=== PATIENT | female | born 1970 | race Two or more races ===

== ENCOUNTER 2024-01-17 18:41 | Emergency (ER) | payer OTHER ==
[~2024-01-17] VITALS: Ht 167.6 cm; Wt 82.1 kg
[2024-01-17 19:39] LABS: Basophils # (auto) 0.1 10 ^3/uL (0-0.2); Basophils % (auto) 0.9 % (0.0-2.0); Eosinophils # (auto) 0.4 10 ^3/uL (0-0.8); Eosinophils % (auto) 5.1 % (0.0-7.0); Hematocrit 42.7 % (36.0-46.0); Hemoglobin 13.9 g/dL (12.2-16.2); Lymphocytes # (auto) 3.2 10 ^3/uL (0.4-5.4); Mean Corpuscular Hemoglobin 32.9 pg (28.0-32.0); Mean Corpuscular Hgb Conc. 32.6 g/dL (32.0-36.0); Mean Corpuscular Volume 100.9 fL (80.0-100.0); Monocytes # (auto) 0.4 10 ^3/uL (0-1.3); Monocytes % (auto) 4.4 % (0.0-12.0); Neutrophils # (auto) 4.3 10 ^3/uL (1.6-8.6); Neutrophils % (auto) 51.6 % (37.0-80.0); Nucleated Red Blood Cells % 0.1 %; Platelet Count (auto) 197 10^3/uL (140-450); Red Blood Cells 4.23 10^6/uL (4.0-5.20); Red Cell Distribution Width 13.4 % (11.8-14.3); White Blood Cell 8.3 10^3/uL (4.4-10.8)
[2024-01-17 19:49] LABS: Chloride 108 mmol/L (98-107); Potassium 3.8 mmol/L (3.5-5.1); Sodium 142 mmol/L (136-145)
[2024-01-17 19:50] LABS: Anion Gap 10 (5-15); Calcium 10.3 mg/dL (8.7-10.4); Carbon Dioxide 24 mmol/L (20-31)
[2024-01-17 19:55] LABS: BUN/Creatinine Ratio 12.1 (10.0-20.0); Blood Urea Nitrogen 12 mg/dL (9-23); Glucose 103 mg/dL (74-106)
[2024-01-17] MEDS ORDERED: [UNRECOGNIZED DRUG - CODE] PO (20:37)
[2024-01-17 21:21] VITALS: BP 116/83; TEMP 98.3
[2024-01-17 21:22] VITALS: PULSE 71; RESP 16; O2SAT 97
== END 2024-01-17 21:27 | disposition home or self-care (01) ==
LOC: ER 18:41
DX: K59.00 Constipation, unspecified (principal); Q43.3 Congenital malformations of intestinal fixation; Z79.899 Other long term (current) drug therapy
CPT/HCPCS: 36415; 74176; 80048; 85025; 93005

== ENCOUNTER 2024-10-21 18:51 | Emergency (ER) | payer OTHER ==
[~2024-10-21] VITALS: Ht 167.6 cm; Wt 84.1 kg
[~2024-10-21 18:51] MED LIST: [UNRECOGNIZED DRUG - CODE] PO
[2024-10-21] MEDS: ALBUTEROL SULF 2.5 MG/0.5ML(0.5%) NEB SOLN NEB ONE (19:30)
[2024-10-21] MEDS: IPRATROPIUM BROM 0.5 MG/2.5ML INH SOL NEB ONE (19:30)
--- NOTE | 2024-10-21 20:09 | DVH ---
Exam: CT CT AB PEL WO CON-NO ORAL OR IV History: Diffuse abdominal pain Comparison Study: CT CT AB PEL WO CON-NO ORAL OR IV on DOS: 01/17/24 TECHNIQUE: Multidetector CT of the abdomen and pelvis was performed from lung bases to pubic symphysi s. Imaging was performed without IV contrast. Axial, coronal, and sagittal multiplanar reformats were obtained from the axial data set by the technologist. RADIATION DOSE: CTDI vol 8.6 mGy. DLP 496.2 mGy.cm Findings: Limited evaluation of the solid organs in the absence of IV contrast. Liver: Unremarkable. Spleen: Small splenule. Pancreas: Unremarkable. Gallbladder: Not well visualized and possibly surgically absent. Adrenals: Unremarkable Kidneys: Unremarkable. Pelvic Viscera: Unremarkable. Vasculature: Unremarkable. Retroperitoneum: Unremarkable. Bowel: No bowel obstruction. The appendix is normal. Musculoskeletal: Unremarkable. Soft tissues: Unremarkable Lungs: Minimal basilar atelectasis. Impression: 1. No acute abdominopelvic abnormality identified.
[2024-10-21 20:14] LABS: Hematocrit 37.4 % (36.0-46.0); Hemoglobin 12.3 g/dL (12.2-16.2); Mean Corpuscular Hemoglobin 30.2 pg (28.0-32.0); Mean Corpuscular Volume 91.9 fL (80.0-100.0); Nucleated Red Blood Cells % 0.1 %
[2024-10-21 20:22] LABS: Anion Gap 9 (5-15); Carbon Dioxide 23 mmol/L (20-31); Potassium 3.6 mmol/L (3.5-5.1); Sodium 141 mmol/L (136-145)
[2024-10-21 20:23] LABS: Calcium 9.3 mg/dL (8.7-10.4)
[2024-10-21 20:28] LABS: BUN/Creatinine Ratio 13.0 (10.0-20.0); Blood Urea Nitrogen 13 mg/dL (9-23); Chloride 109 mmol/L (98-107); Glucose 110 mg/dL (74-106)
[2024-10-21 20:43] LABS: Lipase 67 U/L (12-53)
[2024-10-21] MEDS ORDERED: DICY10CA PO (21:55)
[2024-10-21] MEDS ORDERED: ZOFR4T PO (21:55)
--- NOTE | 2024-10-21 21:55 | ED.PDOC ---
GI ASSESSMENT HPI Comments This patient is a 54-year-old female who arrives the ED today for evaluation of epigastric abdominal pain concerns for nearly a year. Patient gives a broken story of seeing a primary care provider in waiting for specialist referral but insurance concerns caused that referral to be pending. Patient denies any fever but states intermittent nausea and vomiting. Vital signs were stable on arrival. Chief Complaint: Abdominal Pain Time Seen by MD: 19:06 Reviewed Notes: Nurses Notes Allergies: Coded Allergies: NO KNOWN ALLERGIES (Unverified , 01/17/24) Home Meds Active Scripts Peg [id number] Sulfate-N (Peg-3350,Sodium Sulf,NaCl 100 gm) 1 Ruben Ruben, 1 RUBEN PO ONCE for 1 Day, #1 BOT Prov:RAN SMITH MD 01/17/24 Information Source: Patient, Friend Mode of Arrival: Ambulatory Timing: Months Duration: Intermittent Prehospital treatment: None Quality: Cramping, Sharp Vomitus: Food Particles, Soft, Watery Severity: Moderate Recent: Other (Abdominal pain concerns for nearly a year) Recent Hx of: None Pain Location: Diffuse, Epigastric Associated sign and symptoms: Nausea, Vomiting, Abdominal Pain Past Medical History PAST MEDICAL HISTORY: Denies Past Medical History (Other): Recent history of abdominal pain concerns Surgical History: Denies all surgeries CLINICAL DIETITIAN History: No Pertinent CLINICAL DIETITIAN History Family History Family History: Reviewed,noncontributory to illness Social History Smoker: Non-Smoker Alcohol: Denies ETOH Use Drugs: Denies Drug Use Lives In: Home Constitutional: denies: chills, diaphoresis, fatigue, fever, malaise, sweats, weakness, others EENTM: denies: blurred vision, double vision, ear bleeding, ear discharge, ear drainage, ear pain, ear ringing, eye pain, eye redness, hearing loss, mouth pain, mouth swelling, nasal discharge, nose bleeding, nose congestion, nose pain, photophobia, tearing, throat pain, throat swelling, voice changes, others Respiratory: denies: cough, hemoptysis, orthopnea, SOB at rest, shortness of breath, SOB with excertion, stridor, wheezing, others Cardiovascular: denies: chest pain, dizzy spells, diaphoresis, Dyspnea on exertion, edema, irregular heart beat, left arm pain, lightheadedness, palpitations, PND, syncope, others Gastrointestinal: reports: abdominal pain, nausea, vomiting; denies: abdomen distended, blood streaked bowels, constipated, diarrhea, dysphagia, difficulty swallowing, hematemesis, melena, poor appetite, poor fluid intake, rectal bleeding, rectal pain, others Genitourinary: denies: abnormal vagina bleeding, burning, dyspareunia, dysuria, flank pain, frequency, hematuria, incontinence, pain, , vagina discharge, urgency, others Neurological: denies: dizziness, fainting, headache, left sided numbness, left sided weakness, numbness, paresthesia, pre-existing deficit, right sided numbness, right sided weakness, seizure, speech problems, tingling, tremors, weakness, others Musculoskeletal: denies: back pain, gout, joint pain, joint swelling, muscle pain, muscle stiffness, neck pain, others Integumetry: denies: bruises, change in color, change in hair/nails, dryness, laceration, lesions, lumps, rash, wounds, others Allergic/Immunocompromised: denies: Difficulty Healing, Frequent Infections, Hives, Itching, others Hematologic/Lymphatic: denies: anemia, blood clots, easy bleeding, easy bruising, swollen glands, others Endocrine: denies: excessive hunger, excessive sweating, excessive thirst, excessive urination, flushing, intolerance to cold, intolerance to heat, une xplained weight gain, unexplained weight loss, others Psychiatric: denies: anxiety, bipolar disorder, depression, hopeless, panic disorder, schizophrenia, sleepless, suicidal, others Physical Exam General Appearance: Moderate Distress (Moderate distress due to upper abdominal pain concerns.), Normal HEENT: Normal ENT Inspection, Pharynx Normal, TMs Normal Neck: Full Range of Motion, Non-Tender, Normal, Normal Inspection Respiratory: Chest Non-Tender, Lungs Clear, No Accessory Muscle Use, No Respiratory Distress, Normal Breath Sounds Cardiovascular: No Edema, No JVD, No Murmur, No Gallop, Normal Peripheral Pulses, Regular Rate/Rhythm Breast Exam: Deferred Gastrointestinal: Other (Diffuse epigastric tenderness to palpation bilaterally. No signs of trauma. No pulsatile masses. Abdomen was mildly rigid.) Genitalia: Deferred Pelvic: Deferred Rectal: Deferred Extremities: No calf tenderness, Normal capillary refill, Normal inspection, Normal range of motion, Non-tender, No pedal edema Neurologic: Alert, forensic economist II-XII nml as Tested, No Motor Deficits, Normal Affect, Normal Mood, No Sensory Deficits Cerebellar Function: Normal Reflexes: Normal Skin: Dry, Normal Color, Warm Lymphatic: No Adenopathy Was a procedure done? Was a procedure done?: No GI differential Dx Differential Diagnosis: Bowel Obstruction, Cholangitis, Cholecystitis, Constipation, Gastritis/PUD, Gastroenteritis, Pancreatitis X-Ray, Labs, Meds, VS Vital Signs Date Time Temp Pulse Resp B/P (MAP) Pulse Ox O2 Delivery O2 Flow Rate FiO2 10/21/24 19:30 18 99 Room Air* 0 21 10/21/24 18:52 98.1 105 16 127/86 99 98.1 Lab Test 10/21/24 21:08 10/21/24 19:58 Range/Units Troponin I High Sensitivity < 3 L < 3 L </=34 ng/L White Blood Count 8.0 4.4-10.8 10^3/uL Red Blood Count 4.07 4.0-5.20 10^6/uL Hemoglobin 12.3 12.2-16.2 g/dL Hematocrit 37.4 36.0-46.0 % Mean Corpuscular Volume 91.9 80.0-100.0 fL Mean Corpuscular Hemoglobin 30.2 28.0-32.0 pg Mean Corpuscular Hemoglobin Concent 32.9 32.0-36.0 g/dL Red Cell Distribution Width 14.0 11.8-14.3 % Platelet Count 203 140-450 10^3/uL Mean Platelet Volume 10.3 6.9-10.8 fL Neutrophils (%) (Auto) 50.0 37.0-80.0 % Lymphocytes (%) (Auto) 36.1 10.0-50.0 % Monocytes (%) (Auto) 6.0 0.0-12.0 % Eosinophils (%) (Auto) 6.9 0.0-7.0 % Basophils (%) (Auto) 1.0 0.0-2.0 % Neutrophils # (Auto) 4.0 1.6-8.6 10 ^3/uL Lymphocytes # (Auto) 2.9 0.4-5.4 10 ^3/uL Monocytes # (Auto) 0.5 0-1.3 10 ^3/uL Eosinophils # (Auto) 0.5 0-0.8 10 ^3/uL Basophils # (Auto) 0.1 0-0.2 10 ^3/uL Nucleated Red Blood Cells 0.1 % Sodium Level 141 136-145 mmol/L Potassium Level 3.6 3.5-5.1 mmol/L Chloride Level 109 H 98-107 mmol/L Carbon Dioxide Level 23 20-31 mmol/L Anion Gap 9 5-15 Blood Urea Nitrogen 13 9-23 mg/dL Creatinine 1.00 0.550-1.02 mg/dL Glomerular Filtration Rate Calc 67 >90 mL/min BUN/Creatinine Ratio 13.0 10.0-20.0 Serum Glucose 110 H 74-106 mg/dL Lactic Acid Level 1.4 0.4-2.0 mmol/L Calcium Level 9.3 8.7-10.4 mg/dL Lipase 67 H 12-53 U/L Current Medications Medications (Trade) Dose Ordered Sig/Debi Route Start Time Stop Time Status Last Admin Albuterol (Ventolin Medneb) 5 mg ONCE ONCE NEB 10/21/24 19:15 10/21/24 19:16 DC 10/21/24 19:30 Ipratropium [place] (Atrovent Medneb) 0.5 mg ONCE ONCE NEB 10/21/24 19:15 10/21/24 19:16 DC 10/21/24 19:30 X-Ray, Labs, Meds, VS Comment All studies performed the ED were evaluated by me personally. Serum studies were unremarkable other than an elevated lipase. CT evaluation of abdomen was unremarkable and pancreas looked to be normal in appearance. It appears the patient is having a chronic pancreatitis concern. Advised patient follow up with the primary care provider for long-term management and utilize medication a s needed. Time of 1ST Reevaluation: 21:53 Reevaluation 1ST: Improved Consultation: PCP, GI Patient Education/Counseling: Diagnosis, Treatment Family Education/Counseling: Diagnosis, Treatment SEPSIS Sepsis Screen Date sepsis recognized/suspect: Oct 21, 2024 Time Sepsis recognized/suspect: 1851 Recent Procedure: No On Antibiotic Therapy: No Respiratory Rate >20: No Heart Rate >90: Yes Temp<36 C (96.8 F) or >38.3 C: No SBP <90 or MAP <65 mmHG: No New Acute Mental Status Change: No Is the patient on CPAP, BIPAP,: No Physician Orders Troponin-I Hs (10/22/24 00:00) Troponin-I Hs (10/22/24 03:00) Troponin-I Hs (10/22/24 06:00) Urinalysis (10/21/24 19:13) Ct Ab Pel Wo Con-No Oral Or Iv (10/21/24 19:13) He[place]ock Iv (10/21/24 19:13) Electrocardigram (10/21/24 19:13) Vital Signs Date Time Temp Pulse Resp B/P (MAP) Pulse Ox O2 Delivery O2 Flow Rate FiO2 10/21/24 19:30 18 99 Room Air* 0 21 10/21/24 18:52 98.1 105 16 127/86 99 98.1 Laboratory Tests Test 10/21/24 19:58 Lactic Acid Level 1.4 mmol/L (0.4-2.0) White Blood Count 8.0 10^3/uL (4.4-10.8) Medications Medications Dose Ordered Sig/Debi Route Start Time Stop Time Status Last Admin Dose Admin Albuterol 5 mg ONCE ONCE NEB 10/21/24 19:15 10/21/24 19:16 DC 10/21/24 19:30 Ipratropium [place] 0.5 mg ONCE ONCE NEB 10/21/24 19:15 10/21/24 19:16 DC 10/21/24 19:30 Departure 1 Departure Time of Disposition: 21:53 Impression: Primary Impression: Chronic pancreatitis Disposition: HOME / SELF CARE / HOMELESS Condition: Stable Additional Instructions: Advised pain medication as needed for symptomatic relief as well as good hydration and healthy nutrition. Patient needs to follow up with her primary care provider for discussions related to what appears to be a chronic pancreatic issue. e-Prescriptions Ondansetron Odt 4MG Tab (ZOFRAN PO) 4 Mg Tb 4 MG PO Q6HP PRN, #15 TAB ODT TAB-DISSOLVE IN MOUTH, THEN SWALLOW Prov: KAROLINE BACH PAC 10/21/24 Dicyclomine Hcl (BENTYL CAPSULE) 10 Mg Cp 1 CAP PO Q6HPRN, #20 CAP 0 Refills Prov: KAROLINE BACH PAC 10/21/24 Discharged With: Self, Friend Critical Care Note Critical Care Time?: No Stability Stability form required: No Heart Score Heart Score: Heart Score Response (Comments) Value History N/A 0 EKG N/A 0 Age N/A 0 Risk Factors N/A 0 Troponin N/A 0 Total 0 KAROLINE BACH PAC Oct 21, 2024 21:55
[2024-10-21 22:16] LABS: Urine Amorphous Crystal FEW /hpf (None Seen); Urine Protein, UAD Negative (Negative)
[2024-10-21 23:35] VITALS: BP 119/80; TEMP 97.7
[2024-10-21 23:36] VITALS: PULSE 81; RESP 16; O2SAT 99
[2024-10-21] MEDS: ONDANSETRON ODT 4 MG TAB PO ONE (23:42)
[2024-10-21] MEDS: DICYCLOMINE HCL (10MG/ML) 2 ML AMPULE IM ONE (23:42)
== END 2024-10-21 23:53 | disposition home or self-care (01) ==
LOC: ER 18:51
DX: K86.1 Other chronic pancreatitis (principal); Z79.899 Other long term (current) drug therapy
CPT/HCPCS: 36415; 74176; 80048; 81001; 83605; 83690; 84484; 85025; 94640; 96372; 99285; J0500; Q0162